=== PATIENT | female | born 1970 | race Caucasian/White ===

== ENCOUNTER 2016-06-16 17:14 | Emergency (ER) | payer OTHER ==
[~2016-06-16] VITALS: Ht 165.1 cm; Wt 102.0 kg
[2016-06-16 20:44] VITALS: BP 134/87
== END 2016-06-16 20:44 | disposition home or self-care (01) ==
LOC: ED 17:14
DX: G44.209 Tension-type headache, unspecified, not intractable (principal)
CPT/HCPCS: J2270; Q0162

== ENCOUNTER 2016-07-08 20:10 | Emergency (ER) | payer OTHER ==
[~2016-07-08] VITALS: Ht 165.1 cm; Wt 99.8 kg
[2016-07-08 22:14] VITALS: BP 138/75
== END 2016-07-08 22:14 | disposition home or self-care (01) ==
LOC: ED 20:10
DX: S93.491A Sprain of other ligament of right ankle, initial encounter (principal); X58.XXXA Exposure to other specified factors, initial encounter; Y93.89 Activity, other specified; Y92.89 Other specified places as the place of occurrence of the external cause; Y99.8 Other external cause status